=== PATIENT | female | born 1955 ===

== ENCOUNTER 2021-08-20 06:00 | Outpatient (RCR) | payer MEDICARE, SELFPAY | END 2021-09-11 23:59 | disposition home or self-care (01) | LOC: GPT 06:00 | PROVIDERS: Referring Provider Family Medicine; Visit Provider Family Medicine | DX: M25.512 Pain in left shoulder (principal); M75.112 Incomplete rotator cuff tear or rupture of left shoulder, not specified as traumatic | CPT/HCPCS: 97110; 97112; 97161; 97530 ==

== ENCOUNTER 2021-09-12 06:00 | Outpatient (RCR) | payer MEDICARE, SELFPAY | END 2021-10-12 23:59 | disposition home or self-care (01) | LOC: GPT 06:00 | PROVIDERS: Referring Provider Family Medicine; Visit Provider Family Medicine | DX: M25.512 Pain in left shoulder (principal) | CPT/HCPCS: 97110; 97140; 97164 ==

== ENCOUNTER 2021-10-13 06:00 | Outpatient (RCR) | payer MEDICARE, SELFPAY | END 2021-11-12 23:59 | disposition home or self-care (01) | LOC: GPT 06:00 | PROVIDERS: Referring Provider Family Medicine; Visit Provider Family Medicine | DX: M25.512 Pain in left shoulder (principal) | CPT/HCPCS: 97110; 97140 ==